=== PATIENT | male | born 1995 | race Two or more races ===

== ENCOUNTER 2021-05-31 16:17 | Emergency (ER) | payer MEDICAID, OTHER ==
[~2021-05-31] VITALS: Ht 175.3 cm; Wt 81.6 kg
[2021-05-31 16:22] VITALS: BP 131/63
== END 2021-05-31 20:35 | disposition home or self-care (01) ==
LOC: ER 16:17
DX: Z20.822 Contact with and (suspected) exposure to COVID-19 (principal)